=== PATIENT | male | born 1950 | race Caucasian/White ===

== ENCOUNTER 2019-01-19 06:38 | Day surgery (SDC) | payer MEDICARE ==
[~2019-01-19] VITALS: Ht 180.3 cm; Wt 79.3 kg
[2019-01-19 07:15] VITALS: BP 122/75
== END 2019-01-19 08:45 | disposition home or self-care (01) ==
LOC: OUT 06:38
PROVIDERS: ATTEND Internal Medicine Gastroenterology
DX: R19.5 Other fecal abnormalities (principal); K63.5 Polyp of colon; K57.30 Diverticulosis of large intestine without perforation or abscess without bleeding; K62.6 Ulcer of anus and rectum; K64.8 Other hemorrhoids; I48.91 Unspecified atrial fibrillation
CPT/HCPCS: 88305